=== PATIENT | male | born 1975 | race Caucasian/White ===

== ENCOUNTER 2018-09-20 20:39 | Emergency (ER) | payer OTHER | END 2018-09-20 21:12 | disposition home or self-care (01) | LOC: EDH 20:39 | DX: S76.912A Strain of unspecified muscles, fascia and tendons at thigh level, left thigh, initial encounter (principal); Z98.890 Other specified postprocedural states; X58.XXXA Exposure to other specified factors, initial encounter; Y93.64 Activity, baseball; Y92.830 Public park as the place of occurrence of the external cause; Y99.8 Other external cause status | CPT/HCPCS: 99281 ==

== ENCOUNTER → 2019-08-19 | Outpatient (CLI) | payer OTHER ==
[~2019-08-19] MED LIST: GADODIAMIDE 10 MMOL/20 ML VIAL IV ONE
== END | disposition home or self-care (01) ==
LOC: RAH 12:54
PROVIDERS: ATTEND Family Medicine
DX: M25.562 Pain in left knee (principal); M25.561 Pain in right knee
CPT/HCPCS: 73723 ×2; A9579

== ENCOUNTER → 2025-10-02 | Outpatient (CLI) | payer OTHER ==
[2025-10-02 22:38] VITALS: PULSE 69; RESP 12
[2025-10-02 23:14] VITALS: PULSE 69; RESP 12
[2025-10-02 23:45] VITALS: PULSE 67; RESP 12
[2025-10-02 23:52] VITALS: PULSE 67; RESP 12
[2025-10-02 23:59] VITALS: PULSE 70; RESP 12
[2025-10-03] VITALS (10 sets, daily range): PULSE 60–67; RESP 10–16
== END | disposition home or self-care (01) ==
LOC: SLP 20:52
PROVIDERS: ATTEND Internal Medicine Hospice and Palliative Medicine
DX: G47.33 Obstructive sleep apnea (adult) (pediatric) (principal)
CPT/HCPCS: 95810

== ENCOUNTER → 2025-10-06 | Outpatient (CLI) | payer OTHER ==
[2025-10-06 22:01] VITALS: PULSE 70; RESP 14
[2025-10-06 22:30] VITALS: PULSE 64; RESP 16
[2025-10-06 23:00] VITALS: PULSE 68; RESP 14
[2025-10-06 23:30] VITALS: PULSE 68; RESP 18
[2025-10-07] VITALS (12 sets, daily range): PULSE 64–70; RESP 12–18
== END | disposition home or self-care (01) ==
LOC: SLP 20:41
PROVIDERS: ATTEND Internal Medicine Hospice and Palliative Medicine
DX: G47.33 Obstructive sleep apnea (adult) (pediatric) (principal)
CPT/HCPCS: 95811